=== PATIENT | female | born 1990 | race Caucasian/White ===

== ENCOUNTER 2017-05-03 16:06 | Emergency (ER) | payer OTHER ==
[~2017-05-03] VITALS: Ht 154.9 cm; Wt 112.5 kg
[2017-05-03 16:45] VITALS: TEMP 37; Ht 154.9 cm; Wt 112.5 kg
[2017-05-03] MEDS ORDERED: PRENTAB26 PO (17:04)
[2017-05-03 17:12] LABS: BASO % 0.2 %; BASO ABS # 0.02 K/uL (0-0.2); COMPLETE YES; EOS % 0.2 %; HEMATOCRIT 36.9 % (37-47); IG% 0.2 %; LYMPH % 16.8 %; LYMPH ABS # 1.64 K/uL (1.2-3.4); MEAN CELL VOLUME 92.9 fL (80-100); MEAN CORPUSCULAR HEMOGLOBIN 32.7 pg (25-34); MEAN CORPUSCULAR HGB CONC 35.2 g/dl (32-36); MEAN PLATELET VOLUME 9.4 fL (7.4-10.4); MONO % 4.5 %; NEUT % 78.1 %; PLATELET COUNT 266 K/uL (130-400); RED BLOOD COUNT 3.97 M/uL (4.2-5.4); WHITE BLOOD COUNT 9.77 K/uL (4.8-10.8)
[2017-05-03 17:13] LABS: URINE APPEARANCE CLEAR (CLEAR); URINE BILIRUBIN NEG (NEG); URINE COLOR YELLOW; URINE EPITHELIAL CELL AUTO >30 /lpf (0-5); URINE NITRITE NEG (NEG); URINE PH 5.5 (4.5-7.5); URINE SPECIFIC GRAVITY 1.014 (1.000-1.030); UROBILINOGEN NEG (NEG)
[2017-05-03 17:30] LABS: BUN/CREATININE RATIO 15.4 (10-20); CALCIUM 8.9 mg/dl (8.5-10.1); CREATININE 0.65 mg/dl (0.60-1.20); POTASSIUM 3.7 mmol/L (3.5-5.1)
[2017-05-03 17:30] LABS: MANUAL MICROSCOPIC REQUIRED? NO; REVIEW REQ? NO
--- NOTE | 2017-05-03 19:22 | DIAGNOSTIC IMAGING REPORT ---
ECTOPIC ULTRASOUND (transabdominal and endovaginal scanning) CLINICAL HISTORY: Vaginal bleeding. . COMPARISON STUDY: No previous studies for comparison. FINDINGS: The uterus measures 10.7 x 4.6 x 4.2 cm. The right ovary measures 17 x 24 x 11 mm. The left ovary measures 32 x 36 x 24 mm. There is a 19 mm left ovarian follicle. There is an early intrauterine gestational sac with a mean sac diameter 5 mm. No yolk sac or pole is visualized. Ultrasonographic follow-up is recommended to confirm a viable . IMPRESSION: 1. 5 mm intrauterine gestational sac. 2. No yolk sac or pole is visualized 3. Ultrasonographic follow is recommended to confirm a viable 4. No suspicious adnexal masses Electronically signed by: Ash Krasue M.D. 05/03/2017 7:21 PM Dictated Date/Time: 05/03/2017 7:19 PM
[2017-05-03 20:45] VITALS: BP 101/73; PULSE 67; O2SAT 97
--- NOTE | 2017-05-03 21:35 | EMERGENCY ROOM VISIT NOTE ---
History Report prepared by Santiago: Alexandra Coffman Under the Supervision of: Dr. Vitaliy Ugalde M.D. First contact with patient: 16:50 Chief Complaint: ABDOMINAL PAIN Stated Complaint: LOWER ABDOMINAL PAIN, CRAMPING, BACK PAIN Nursing Triage Summary: patient states "I'm five weeks , I got abdominal pain, cramping, and low back pain about an hr ago. I am also spotting." History of Present Illness The patient is a 26 year old female who presents to the Emergency Room with complaints of suprapubic abdominal pain beginning an hour and a half ago. The patient describes the pain as cramping. She states that the pain also radiates to her back. The patient also reports that she is spotting. The patient denies having fevers, vomiting, diarrhea, and problems urinating. The patient states that she has a history of asthma, and denies a history of hypertension. The patient is 5 weeks . This is her third . She has never had a tubal in the past. She did have a previously. Source of History: patient Onset: hour and a half ago Position: abdomen (lower ) Quality: sharp, cramping Timing: constant Associated Symptoms: + back pain, No fevers, No vomiting, No diarrhea, No urinary symptoms Note: additional symptom: spotting Review of Systems See HPI for pertinent positives & negatives. A total of 10 systems reviewed and were otherwise negative. Past Medical & Surgical Medical Problems: (1) Asthma (2) delivery delivered Family History No pertinent family history stated. Social History Smoking Status: Former Smoker Current/Historical Medications Scheduled Multivit/Min/Iron/Fol Ac/Pren ( Vitamin), 1 TAB PO DAILY Allergies Coded Allergies: Adhesives (Unverified Allergy, Unknown, ., 05/03/17) Latex (Unverified Allergy, Unknown, ., 05/03/17) Tramadol (Unverified Allergy, Unknown, ., 05/03/17) Physical Exam Vital Signs Date Time Temp Pulse Resp B/P (MAP) Pulse Ox O2 Delivery O2 Flow Rate FiO2 05/03/17 20:45 67 16 101/73 97 05/03/17 20:30 79 18 114/69 97 Room Air 05/03/17 19:16 71 16 134/73 98 Room Air 05/03/17 16:45 37.0 75 20 126/86 99 Room Air Physical Exam Constitutional: Vital signs reviewed. Eyes: Pupils are equal round reactive to light. Conjunctiva are noninjected. ENT: Pharynx is clear without erythema or exudate. Mucous membranes are moist. Neck supple without meningeal signs. Respiratory: Clear to auscultation bilaterally. Breath sounds are equal bilaterally. Cardiovascular: Regular rate and rhythm. No rubs or gallops. GI: Soft, nondistended. Suprapubic tenderness. Bowel sounds are present. Musculoskeletal: No peripheral edema. No lower extremity tenderness. No CVA tenderness. Integumentary: No cyanosis. Neurological: The patient is awake and alert. No focal deficits. Psychiatric: Normal affect. Pelvic: Unable to tolerate speculum exam. Manual exam demonstrates no cervical motion tenderness. Cervical os is closed. No blood noted. Medical Decision & Procedures ER Provider Diagnostic Interpretation: Radiology results as stated below per my review and the radiologist's interpretation: ECTOPIC ULTRASOUND (transabdominal and endovaginal scanning) CLINICAL HISTORY: Vaginal bleeding. . COMPARISON STUDY: No previous studies for comparison. FINDINGS: The uterus measures 10.7 x 4.6 x 4.2 cm. The right ovary measures 17 x 24 x 11 mm. The left ovary measures 32 x 36 x 24 mm. There is a 19 mm left ovarian follicle. There is an early intrauterine gestational sac with a mean sac diameter 5 mm. No yolk sac or pole is visualized. Ultrasonographic follow-up is recommended to confirm a viable . IMPRESSION: 1. 5 mm intrauterine gestational sac. 2. No yolk sac or pole is visualized 3. Ultrasonographic follow is recommended to confirm a viable 4. No suspicious adnexal masses Electronically signed by: Ash Krause M.D. 05/03/2017 7:21 PM Dictated Date/Time: 05/03/2017 7:19 PM Laboratory Results 05/03/17 17:05 Red Blood Count 3.97, Mean Corpuscular Volume 92.9, Mean Corpuscular Hemoglobin 32.7, Mean Corpuscular Hemoglobin Concent 35.2, Mean Platelet Volume 9.4, Neutrophils (%) (Auto) 78.1, Lymphocytes (%) (Auto) 16.8, Monocytes (%) (Auto) 4.5, Eosinophils (%) (Auto) 0.2, Basophils (%) (Auto) 0.2, Neutrophils # (Auto) 7.63, Lymphocytes # (Auto) 1.64, Monocytes # (Auto) 0.44, Eosinophils # (Auto) 0.02, Basophils # (Auto) 0.02 05/03/17 17:05 Test 05/03/17 16:55 05/03/17 17:05 Urine Color YELLOW Urine Appearance CLEAR (CLEAR) Urine pH 5.5 (4.5-7.5) Urine Specific [place] 1.014 (1.000-1.030) Urine Protein NEG (NEG) Urine Glucose (UA) NEG (NEG) Urine Ketones NEG (NEG) Urine Occult Blood NEG (NEG) Urine Nitrite NEG (NEG) Urine Bilirubin NEG (NEG) Urine Urobilinogen NEG (NEG) Urine Leukocyte Esterase TRACE (NEG) Urine WBC (Auto) 1-5 /hpf (0-5) Urine RBC (Auto) 0-4 /hpf (0-4) Urine Hyaline Casts (Auto) 0 /lpf (0-5) Urine Epithelial Cells (Auto) >30 /lpf (0-5) Urine Bacteria (Auto) 1+ (NEG) White Blood Count 9.77 K/uL (4.8-10.8) Red Blood Count 3.97 M/uL (4.2-5.4) Hemoglobin 13.0 g/dL (12.0-16.0) Hematocrit 36.9 % (37-47) Mean Corpuscular Volume 92.9 fL (80-100) Mean Corpuscular Hemoglobin 32.7 pg (25-34) Mean Corpuscular Hemoglobin Concent 35.2 g/dl (32-36) Platelet Count 266 K/uL (130-400) Mean Platelet Volume 9.4 fL (7.4-10.4) Neutrophils (%) (Auto) 78.1 % Lymphocytes (%) (Auto) 16.8 % Monocytes (%) (Auto) 4.5 % Eosinophils (%) (Auto) 0.2 % Basophils (%) (Auto) 0.2 % Neutrophils # (Auto) 7.63 K/uL (1.4-6.5) Lymphocytes # (Auto) 1.64 K/uL (1.2-3.4) Monocytes # (Auto) 0.44 K/uL (0.11-0.59) Eosinophils # (Auto) 0.02 K/uL (0-0.5) Basophils # (Auto) 0.02 K/uL (0-0.2) RDW Standard Deviation 41.6 fL (36.4-46.3) RDW Coefficient of Variation 12.1 % (11.5-14.5) Immature Granulocyte % (Auto) 0.2 % Immature Granulocyte # (Auto) 0.02 K/uL (0.00-0.02) Anion Gap 9.0 mmol/L (3-11) Est Creatinine Clear Calc Drug Dose 152.5 ml/min Estimated GFR () 142.0 Estimated GFR (Non- 122.5 BUN/Creatinine Ratio 15.4 (10-20) Calcium Level 8.9 mg/dl (8.5-10.1) Human Chorionic Gonadotropin, Quant 2615 mIU/mL Laboratory results as reviewed by me. ED Course 1649: The patient was evaluated in room B11B. A complete history and physical exam was performed. 1932: I checked on the patient. Her bleeding has stopped but she is still having cramping with tenderness in the suprapubic region. Her beta hCG on was 1300 which was checked at [facility]. 1956: Dr. Arredondo said that the patient should follow up in 48 hours for a repeat hCG and have a sonogram done in 2 weeks. 1999: I discussed OBGYN recommendations and return instructions with the patient. 2019: Dr. Sanchez agreed with my plan and management. 2030: Upon reevaluation, the patient appeared to have improvement of her symptoms. I discussed tonight's findings with her. She verbalized agreement of the treatment plan. She was discharged home. Medical Decision This is a 26-year-old female presents with suprapubic pain and vaginal spotting. Differential diagnosis includes ectopic , heterotopic , threatened miscarriage, ovarian cyst, miscarriage. I did perform a limited focused review of portions of the patient's old chart on the electronic medical record. The patient has had no recent pertinent visits to this hospital. I did evaluate the patient as noted above. The patient is presenting with suprapubic pain with vaginal spotting. She is 5 weeks . She states that she had an hCG of 1300 3 days ago. IV access was established. I did order and personally review the patient's urine analysis as described above. I did order and review the patient's blood work as noted in the electronic medical record. She is not anemic. Her white blood cell count is not elevated. Beta hCG is 2600. Blood type is A-. I did order RhoGAM for the patient. I did order sonogram of the pelvis. I did review the images myself as well as the radiology report as described above. Gestational sac was identified but there was no yolk sac or intrauterine . No adnexal abnormalities were noted. I did perform a pelvic examination which showed a closed cervix. Speculum examination wasn't possible due to patient discomfort even with a pediatric speculum. There was no blood in the vaginal vault. I did discuss the test results with the patient and her partner. I did initially page her crew boat operator in [place] but when I did not get a response I spoke to Dr. Arredondo of obstetrics here. He agreed with my management and plan for repeat hCG in 2 days. Later the patient's crew boat operator from [place] did call back and he also agreed with my plan and management. The patient was discharged in good condition and will have her hCG rechecked. I did review return instructions with her and her partner. She does understand that an ectopic is not completely ruled out at this point. Medication Reconcilliation Current Medication List: was personally reviewed by me Blood Pressure Screening Patient's blood pressure: Elevated blood pressure Blood pressure disposition: Referred to PCP Consults Time Called: 1909 Consulting Physician: Dr. Boyce Returned Call: 1956 Dr. Arredondo said that the patient should follow up in 48 hours for a repeat hCG and have a sonogram done in 2 weeks. Additional Consults: Time Called: 1999 Consulted Physician: Dr. Sanchez - [facility] Returned Call: 2019 Additional Comments: Dr. Sanchez agreed with my plan and management. Impression Primary Impression: Threatened miscarriage Scribe Attestation The scribe's documentation has been prepared under my direct and personally reviewed by me in its entirety. I confirm that the note above accurately reflects all work, treatment, procedures, and medical decision making performed by me. Departure Information Dispostion Home / Self-Care Referrals No Doctor, Assigned (PCP) Forms HOME CARE DOCUMENTATION FORM, IMPORTANT VISIT INFORMATION Patient Instructions ED Abdominal Pain Rule Out Ectopic, My [facility] Additional Instructions You have been examined and treated today on an emergency basis only. This is not a substitute for, or an effort to provide, complete comprehensive medical care. It is impossible to recognize and treat all injuries or illnesses in a single emergency department visit. It is therefore important that you follow up closely with your crew boat operator in 48 hours for repeat beta-hCG. Urine beta hCG here was 2615. Call as soon as possible for an appointment. Return for worsening symptoms or if you develop fever, vomiting, severe abdominal pain, worsening vaginal bleeding or any other concerning symptoms.
== END 2017-05-03 21:03 | disposition home or self-care (01) ==
LOC: C.EDB 16:10
DX: O20.0 Threatened abortion (principal); Z3A.01 Less than 8 weeks gestation of pregnancy; O99.511 Diseases of the respiratory system complicating pregnancy, first trimester; J45.909 Unspecified asthma, uncomplicated; Z87.891 Personal history of nicotine dependence